=== PATIENT | female | born 1980 | race Caucasian/White ===

== ENCOUNTER 2017-01-19 13:04 | Emergency (ER) | payer MEDICAID ==
[2017-01-19 13:18] VITALS: BP 164/94
--- NOTE | 2017-01-19 13:44 | EDM.PDOC ---
ED HPI Behavioral Health - General Chief Complaint: Behavioral/Psych Stated Complaint: ANXIOUS Time Seen by Provider: 01/19/17 13:31 Source: Reports: Patient Exam Limitations: Reports: No limitations - History of Present Illness INITIAL COMMENTS - FREE TEXT/NARRATIVE: Pt reports hx of anxiety and recent stress of job loss, [place] another [place] to [place] and roommate difficulties as purpose for current anxiety increase. Changed approx 2 weeks ago from Wellbutrin to Lexapro. She is not sure if the medication isn't working or if all of the other factors area also causing her symptoms. Reports she will feel panicked, have nausea and get an upset stomach. Sometimes diarrhea, which she has now, and has had for the past week. Had palpitations last night. Now resolved. Pt reports she is also out of phenergan which she uses when her stomach bothers her. Requesting a small amt of this until she is able to get her Medicaid switched and she can establish in Clinic. Onset of Symptoms: Reports: sudden Duration of Symptoms: Reports: Week(s): Severity: moderate Context, Behavioral Health: Reports: living situation, school/work, family dynamics Associated Symptoms: Reports: anxiety, depression. Denies: hallucinations, auditory, hallucinations, visual, paranoia, suicidal thought - SAD Persons Scale (SPS) SPS Sex: Female SPS Age: Between 18-65 Years of Age SPS Depression: Yes SPS Previous Suicide Attempts: No SPS Alcohol Abuse/Drug Abuse: No SPS Rational Thinking Loss: No SPS Social Support Deficit: Yes SPS Organized Suicide Plan: No SPS No Spouse/Significant Other: No SPS Sickness: No SPS Sad Person Scale Score: 2 - Related Data Allergies Allergy/AdvReac Type Severity Reaction Status Date / Time acetaminophen [From Percocet] Allergy Hives Verified 01/19/17 13:19 amlodipine [From Norvasc] Allergy Hives Verified 01/19/17 13:19 oxycodone [From Percocet] Allergy Hives Verified 01/19/17 13:19 sulfamethoxazole Allergy Vomiting Verified 01/19/17 13:19 [From Bactrim] trimethoprim [From Bactrim] Allergy Vomiting Verified 01/19/17 13:19 Home Medications: Home Meds Escitalopram Oxalate [Lexapro] 20 mg PO DAILY 01/19/17 [History] Esomeprazole [NexIUM] 40 mg PO ACBREAKFAST 01/19/17 [History] Lisinopril [Prinivil] 20 mg PO DAILY 01/19/17 [History] Promethazine [Phenergan] 25 mg PO ASDIRECTED PRN 01/19/17 [History] denies Pain Score (Numeric/FACES): 0 Past Medical History HEENT History: Reports: Impaired vision Cardiovascular History: Reports: Hypertension Gastrointestinal History: Reports: GERD, PUD Genitourinary 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 calculus 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: Psychiatric History: Reports: Anxiety, Depression - Past Surgical History HEENT Surgical History: Reports: Eye surgery Female Surgical History: Reports: Lithotripsy/ESWL, Other (see below) Other Female Surgeries/Procedures: ureter surgery Social & Family History - Tobacco Use Smoking Status *Q: Never Smoker Used Tobacco, but Quit: Yes Month Tobacco Last Used: july 2016 Second Hand Smoke Exposure: No - Caffeine Use Caffeine Use: Reports: Soda, Tea - Recreational Drug Use Recreational Drug Use: No ED ROS GENERAL - Review of Systems Review Of Systems: ROS reveals no pertinent complaints other than HPI. ED EXAM, BEHAVIORAL HEALTH - Physical Exam Exam: See Below Exam Limited By: No limitations General Appearance: alert, WD/WN, no apparent distress Eye Exam: bilateral eye: PERRL Ears: normal external exam, hearing grossly normal Nose: normal inspection Throat/Mouth: Normal inspection, Normal lips, Normal oropharynx, Normal voice, No airway compromise Head: atraumatic Neck: normal inspection, supple Respiratory/Chest: no respiratory distress, lungs clear Cardiovascular: regular rate, rhythm Neurological: alert, normal mood/affect, CN II-XII intact, normal cognition, normal gait Psychiatric: alert, normal affect, normal cognition, normal mood, oriented. No : poor eye contact, uncooperative Skin Exam: Warm, Dry, Intact COURSE, BEHAVIORAL HEALTH COMP - Course Vital Signs: Last Vital Signs Temp 36.2 C 01/19/17 13:17 Pulse 101 H 01/19/17 13:17 Resp 15 01/19/17 13:17 BP 164/94 H 01/19/17 13:17 Pulse Ox 94 L 01/19/17 13:17 Departure - Departure Time of Disposition: 13:45 Disposition: Home, Self-Care 01 Condition: good Clinical Impression: Anxiety, Stomach irritation Instructions: Panic Attacks, [id number] Referrals: PCP,None [Primary Care Provider] - Forms: ED Department Discharge Additional Instructions: 1. You will need to establish in Clinic for further medication refills. Phenergan 25mg tabs #16 no refills 2. Hydroxyzine was provided for you anxiety for home use. 50mg tabs #16 no refills 3. Continue other medications as discussed. - Problem List & Annotations (1) Anxiety SNOMED Code(s): 86652319 Code(s): F41.9 - ANXIETY DISORDER, UNSPECIFIED Status: Acute (2) Stomach irritation SNOMED Code(s): 5471934 Code(s): K31.89 - OTHER DISEASES OF STOMACH AND DUODENUM Status: Chronic - Problem List Review Problem List Initiated/Reviewed/Updated: Yes
== END 2017-01-19 13:56 | disposition home or self-care (01) ==
LOC: JP.ED 13:04
DX: F41.9 Anxiety disorder, unspecified (principal); K31.89 Other diseases of stomach and duodenum; I10 Essential (primary) hypertension; K21.9 Gastro-esophageal reflux disease without esophagitis; F32.9 Major depressive disorder, single episode, unspecified; Z98.890 Other specified postprocedural states; Z79.899 Other long term (current) drug therapy; Z88.1 Allergy status to other antibiotic agents; Z88.5 Allergy status to narcotic agent; Z88.8 Allergy status to other drugs, medicaments and biological substances
CPT/HCPCS: 99283

== ENCOUNTER 2017-04-14 15:51 | Emergency (ER) | payer MEDICAID ==
--- NOTE | 2017-04-14 17:37 | EDM.PDOC ---
ED HPI GENERAL MEDICAL PROBLEM - General Chief Complaint: Genitourinary Problem Stated Complaint: LEFT SIDE KIDNEY PAIN, FEVER THROWING UP Time Seen by Provider: 04/14/17 17:10 Source of Information: Reports: Patient History Limitations: Reports: No Limitations - History of Present Illness INITIAL COMMENTS - FREE TEXT/NARRATIVE: Patient presents today with complaints of left flank pain, dysuria and pain to vagina, labia for 7 days. She reports worsening of pain and burning with urination today accompanied by nausea. She denies fever, chills, vomiting. . Quality: Reports: Sharp, Throbbing Severity: Moderate Improves with: Reports: None Worsens with: Reports: Other (Urination), Movement left flank and around to front Pain Score (Numeric/FACES): 6 - Related Data Allergies Allergy/AdvReac Type Severity Reaction Status Date / Time acetaminophen [From Percocet] Allergy Hives Verified 04/14/17 16:51 amlodipine [From Norvasc] Allergy Hives Verified 04/14/17 16:51 oxycodone [From Percocet] Allergy Hives Verified 04/14/17 16:51 sulfamethoxazole Allergy Vomiting Verified 04/14/17 16:51 [From Bactrim] trimethoprim [From Bactrim] Allergy Vomiting Verified 04/14/17 16:51 Home Meds: Home Meds Escitalopram Oxalate [Lexapro] 20 mg PO DAILY 01/19/17 [History] Esomeprazole [NexIUM] 40 mg PO ACBREAKFAST 01/19/17 [History] Lisinopril [Prinivil] 20 mg PO DAILY 01/19/17 [History] Promethazine [Phenergan] 25 mg PO ASDIRECTED PRN 01/19/17 [History] hydrOXYzine HCl [hydrOXYzine] 50 mg PO QID PRN 04/14/17 [History] Past Medical History HEENT History: Reports: Impaired Vision Cardiovascular History: Reports: Hypertension Gastrointestinal History: Reports: GERD, PUD Genitourinary 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: Psychiatric History: Reports: Anxiety, Depression - Past Surgical History HEENT Surgical History: Reports: Eye Surgery GI Surgical History: Reports: None Female Surgical History: Reports: Lithotripsy/ESWL, Ureteral Stent Social & Family History - Tobacco Use Smoking Status *Q: Never Smoker Used Tobacco, but Quit: Yes Month Tobacco Last Used: july 2016 Second Hand Smoke Exposure: No - Caffeine Use Caffeine Use: Reports: Soda, Tea - Recreational Drug Use Recreational Drug Use: No ED ROS GENERAL - Review of Systems Review Of Systems: See Below Constitutional: Denies: Fever, Chills, Malaise HEENT: Reports: No Symptoms Respiratory: Denies: Shortness of Breath, Wheezing, Cough, Sputum Cardiovascular: Denies: Chest Pain, Dyspnea on Exertion, Edema, Lightheadedness , Palpitations, PND, Syncope Endocrine: Reports: No Symptoms GI/Abdominal: Reports: Abdominal Pain, Nausea. Denies: Black Stool, Bloody Stool, Constipation, Diarrhea, Stool Incontinence, Vomiting : Reports: Dysuria, Flank Pain, Frequency, Irregular Menses, Urgency. Denies : Hematuria, Urinary Retention Musculoskeletal: Reports: No Symptoms Skin: Denies: Bruising, Pruritis, Rash, Erythema, Wound, Urticaria Neurological: Denies: Confusion, Dizziness, Headache, Numbness, Tingling, Weakness Psychiatric: Reports: No Symptoms Hematologic/Lymphatic: Reports: No Symptoms Immunologic: Reports: No Symptoms ED EXAM, RENAL/ - Physical Exam Exam: See Below Text/Narrative:: Marilou is an alert, oriented and pleasant 37 year old female presenting with dysuria, left flank pain and vaginal odor for 7 days. She reports worsening today. Exam Limited By: No Limitations General Appearance: Alert, WD/WN, No Apparent Distress Eye Exam: Bilateral Eye: EOMI, Normal Inspection Ears: Normal External Exam, Normal Canal, Hearing Grossly Normal, Normal TMs Nose: Normal Inspection, Normal Mucosa, No Blood Throat/Mouth: Normal Inspection, Normal Lips, Normal Teeth, Normal Gums, Normal Oropharynx, Normal Voice, No Airway Compromise Head: Atraumatic, Normocephalic Neck: Normal Inspection, Supple, Non-Tender, Full Range of Motion Respiratory/Chest: No Respiratory Distress, Lungs Clear, Normal Breath Sounds, No Accessory Muscle Use, Chest Non-Tender Cardiovascular: Normal Peripheral Pulses, Regular Rate, Rhythm, No Edema, No Murmur, No Rub GI/Abdominal: Normal Bowel Sounds, Soft, Non-Tender, No Organomegaly, No Abnormal Bruit, Other (obese) (Female) Exam: Normal External Exam, Other (strong odor). No: Vaginal Bleeding, Vaginal Lesions, Vaginal Tears Back Exam: Full Range of Motion, CVA Tenderness (L). No: CVA Tenderness (R), Decreased Range of Motion, Muscle Spasm, Paraspinal Tenderness, Vertebral Tenderness Extremities: Normal Inspection, Normal Range of Motion, Non-Tender, No Pedal Edema, Normal Capillary Refill Neurological: Alert, Oriented, CN II-XII Intact, Normal Cognition, Normal Gait, No Motor/Sensory Deficits Psychiatric: Normal Affect, Normal Mood Skin Exam: Warm, Dry, Intact, Normal Color, No Rash Lymphatic: No Adenopathy Course - Vital Signs Last Recorded V/S: Last Vital Signs Temp 36.8 C 04/14/17 16:45 Pulse 80 04/14/17 18:08 Resp 16 04/14/17 18:08 BP 141/79 H 04/14/17 18:08 Pulse Ox 98 04/14/17 18:08 - Orders/Labs/Meds Orders: Active Orders 24 hr Category Date Time Status Kidney Stone Protocol [CT] Stat Exams 04/14/17 18:53 Taken Labs: Laboratory Tests 04/14/17 04/14/17 04/14/17 Range/Units 17:29 17:29 17:29 WBC 8.9 (4.5-11.0) K/uL RBC 4.98 (3.30-5.50) M/uL Hgb 13.8 (12.0-15.0) g/dL Hct 40.3 (36.0-48.0) % MCV 81 (80-98) fL MCH 28 (27-31) pg MCHC 34 (32-36) % Plt Count 150 (150-400) K/uL Neut % (Auto) 66 (36-66) % Lymph % (Auto) 20 L (24-44) % [place] % (Auto) 7 H (2-6) % Eos % (Auto) 7 H (2-4) % Baso % (Auto) 0 (0-1) % Sodium 138 L (140-148) mmol/L Potassium 4.2 (3.6-5.2) mmol/L Chloride 103 (100-108) mmol/L Carbon Dioxide 28 (21-32) mmol/L Anion Gap 11.2 (5.0-14.0) mmol/L BUN 18 (7-18) mg/dL Creatinine 1.1 H (0.6-1.0) mg/dL Est Cr Clr Drug Dosing 61.79 mL/min Estimated GFR (MDRD) 55 L (>60) Glucose 85 (74-106) mg/dL Calcium 9.0 (8.5-10.1) mg/dL Urine Color Yellow Urine Appearance Slightly cloudy Urine pH 5.0 (4.5-8.0) Ur Specific [place] 1.025 (1.008-1.030) Urine Protein Negative (NEGATIVE) mg/dL Urine Glucose (UA) Normal (NEGATIVE) mg/dL Urine Ketones Negative (NEGATIVE) mg/dL Urine Occult Blood Negative (NEGATIVE) Urine Nitrite Negative (NEGATIVE) Urine Bilirubin Negative (NEGATIVE) Urine Urobilinogen Normal (NORMAL) mg/dL Ur Leukocyte Esterase Negative (NEGATIVE) Urine RBC Not seen (0-5) Urine WBC 0-5 (0-5) Ur Epithelial Cells Moderate Amorphous Sediment Rare Urine Bacteria Not seen Urine Mucus Not seen Urine HCG, Qual 04/14/17 Range/Units 17:37 WBC (4.5-11.0) K/uL RBC (3.30-5.50) M/uL Hgb (12.0-15.0) g/dL Hct (36.0-48.0) % MCV (80-98) fL MCH (27-31) pg MCHC (32-36) % Plt Count (150-400) K/uL Neut % (Auto) (36-66) % Lymph % (Auto) (24-44) % [place] % (Auto) (2-6) % Eos % (Auto) (2-4) % Baso % (Auto) (0-1) % Sodium (140-148) mmol/L Potassium (3.6-5.2) mmol/L Chloride (100-108) mmol/L Carbon Dioxide (21-32) mmol/L Anion Gap (5.0-14.0) mmol/L BUN (7-18) mg/dL Creatinine (0.6-1.0) mg/dL Est Cr Clr Drug Dosing mL/min Estimated GFR (MDRD) (>60) Glucose (74-106) mg/dL Calcium (8.5-10.1) mg/dL Urine Color Urine Appearance Urine pH (4.5-8.0) Ur Specific [place] (1.008-1.030) Urine Protein (NEGATIVE) mg/dL Urine Glucose (UA) (NEGATIVE) mg/dL Urine Ketones (NEGATIVE) mg/dL Urine Occult Blood (NEGATIVE) Urine Nitrite (NEGATIVE) Urine Bilirubin (NEGATIVE) Urine Urobilinogen (NORMAL) mg/dL Ur Leukocyte Esterase (NEGATIVE) Urine RBC (0-5) Urine WBC (0-5) Ur Epithelial Cells Amorphous Sediment Urine Bacteria Urine Mucus Urine HCG, Qual Negative Meds: Medications Discontinued Medications Generic Name Dose Route Start Last Admin Trade Name Freq PRN Reason Stop Dose Admin Ketorolac Tromethamine 60 mg 04/14/17 18:53 04/14/17 19:07 Toradol IM 04/14/17 18:54 60 mg ONETIME ONE Administration Ondansetron HCl 4 mg 04/14/17 18:54 04/14/17 20:32 Zofran Odt PO 04/14/17 18:55 Not Given ONETIME ONE - Radiology Interpretation Free Text/Narrative:: CT scan results: Mild left hydronephrosis with prominent left renal pelvis narrowing down to the left UPJ. 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 - Re-Assessments/Exams Free Text/Narrative Re-Assessment/Exam: 04/14/17 1845 Lab work reviewed with patient. Pain and nausea continue. Zofran and toradol will be administered. CT scan with renal stone protocol to be completed. Patient in agreement with plan. Free Text/Narrative Re-Assessment/Exam: 04/14/17 19:55 Patient sleeping without difficulty in room. Waiting for CT report. 04/14/17 20:35 CT report discussed with patient, pain management discussed with patient as well as importance of follow up with primary provider and urology. Patient verbalized understanding. She will practice good vaginal hygiene for irritation, use of lubricant for intercourse. Departure - Departure Time of Disposition: 20:10 Disposition: Home, Self-Care 01 Clinical Impression: Hydronephrosis - Discharge Information Instructions: Hydronephrosis Referrals: PCP,None [Primary Care Provider] - Forms: ED Department Discharge Additional Instructions: CT scan negative for acute finding or kidney stone. 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 This needs to be followed by your primary care provider and you will need a referral to a urologist. In symptomatic patients, sometimes surgical intervention to relieve the obstruction is done. You can use toradol 10mg tablet, one tablet by mouth every 6 hours for pain #10. You can use acetaminophen and ibuprofen (after use of toradol) for pain. Phenergan as needed for nausea. Report to clinic or ER with worsening, issues or concerns. - My Orders Last 24 Hours: My Active Orders 04/14/17 18:53 Kidney Stone Protocol [CT] Stat - Assessment/Plan Last 24 Hours: My Active Orders 04/14/17 18:53 Kidney Stone Protocol [CT] Stat Assessment:: CT scan negative for acute finding or kidney stone. 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 This needs to be followed primary care provider as well as a referral to a urologist. In symptomatic patients, sometimes surgical intervention to relieve the obstruction is done. Plan: CT scan negative for acute finding or kidney stone. 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 This needs to be followed by primary care provider and a urologist. In symptomatic patients, sometimes surgical intervention to relieve the obstruction is done. Patient advised to see primary provider this week to obtain urology referral. She can use toradol 10mg tablet, one tablet by mouth every 6 hours for pain #10. You can use acetaminophen and ibuprofen (after use of toradol) for pain. Phenergan as directed for nausea Report to clinic or ER with worsening, issues or concerns.
[2017-04-14 18:09] VITALS: BP 141/79
[2017-04-14] MEDS ORDERED: Ketorolac 60 MG/2 ML SDV IM ONE (18:53)
[2017-04-14] MEDS ORDERED: Ondansetron 4 MG Tab.DIS PO ONE (18:54)
== END 2017-04-14 20:39 | disposition home or self-care (01) ==
LOC: JP.ED 15:51
DX: N13.30 Unspecified hydronephrosis (principal); I10 Essential (primary) hypertension; K21.9 Gastro-esophageal reflux disease without esophagitis; F41.9 Anxiety disorder, unspecified; F32.9 Major depressive disorder, single episode, unspecified; Z88.1 Allergy status to other antibiotic agents; Z88.8 Allergy status to other drugs, medicaments and biological substances; Z79.899 Other long term (current) drug therapy; Z87.442 Personal history of urinary calculi; Z98.890 Other specified postprocedural states
CPT/HCPCS: 36415; 74176; 80048; 81001; 81025; 85025; 87210; 96372; 99284; J1885

== ENCOUNTER 2017-05-07 18:25 | Emergency (ER) | payer MEDICAID ==
[2017-05-07] MEDS ORDERED: Sodium Chloride 0.9% 1,000 ML IV SCH (19:15)
[2017-05-07] MEDS ORDERED: Ketorolac 30 MG/ML SDV IVPUSH ONE (20:47)
[2017-05-07 20:58] VITALS: BP 145/83
--- NOTE | 2017-05-07 21:48 | EDM.PDOC ---
ED HPI GENERAL MEDICAL PROBLEM - General Chief Complaint: Flank Pain Stated Complaint: SEVERE LEFT SIDE BACK PAIN Time Seen by Provider: 05/07/17 18:29 Source of Information: Reports: Patient History Limitations: Reports: No Limitations - History of Present Illness INITIAL COMMENTS - FREE TEXT/NARRATIVE: History of present illness: [Patient is here presenting with left flank pain she had a CT last Friday at [facility] in [place] and has not heard the results of that. 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 Just wondering what to do next. Denies any dysuria denies any nausea vomiting constipation diarrhea denies any fevers or chills.] Review of systems: As per history of present illness and below otherwise all systems reviewed and negative. Past medical history: As per history of present illness and as reviewed below otherwise noncontributory. Surgical history: As per history of present illness and as reviewed below otherwise noncontributory. Social history: No reported history of drug or alcohol abuse. Family history: As per history of present illness and as reviewed below otherwise noncontributory. Physical exam: HEENT: Atraumatic, normocephalic, pupils reactive, negative for conjunctival pallor or scleral icterus, mucous membranes moist, throat clear, neck supple, nontender, trachea midline. Lungs: Clear to auscultation, breath sounds equal bilaterally, chest nontender. Heart: S1S2, regular, negative for clicks, rubs, or JVD. Abdomen: She has mild tenderness to palpation of the left flank area and mild CVA tenderness. No masses are appreciated. Pelvis: Stable nontender. Genitourinary: Deferred. Rectal: Deferred. Extremities: Atraumatic, negative for cords or calf pain. Neurovascular unremarkable. Neuro: Awake, alert, oriented. Exam nonfocal. Diagnostics: [CBC complete metabolic panel UA urine test were all done nothing of any note was discovered.] Therapeutics: [She received IV fluids while here and IV Toradol and her pain improved with this.] Impression: [Left flank pain with CT evidence of partial duplication of the left renal collecting system see CT report for details.] Plan: [Were going to give her a copy of her CT report and she will try to get a hold of her urologist tomorrow to know what the next step will be. She may need to have some sort of surgery or stent placed. At this time were not seeing any evidence of infection from an obstruction and so I'm not placing her on any antibiotics.] Definitive disposition and diagnosis as appropriate pending reevaluation and review of above. Left Flank Pain Score (Numeric/FACES): 8 - Related Data Allergies Allergy/AdvReac Type Severity Reaction Status Date / Time amlodipine [From Norvasc] Allergy Hives Verified 05/07/17 19:02 oxycodone [From Percocet] Allergy Hives Verified 05/07/17 19:02 sulfamethoxazole Allergy Vomiting Verified 05/07/17 19:02 [From Bactrim] trimethoprim [From Bactrim] Allergy Vomiting Verified 05/07/17 19:02 Home Meds: Home Meds Escitalopram Oxalate [Lexapro] 20 mg PO DAILY 01/19/17 [History] Esomeprazole [NexIUM] 40 mg PO ACBREAKFAST 01/19/17 [History] Lisinopril [Prinivil] 20 mg PO DAILY 01/19/17 [History] Promethazine [Phenergan] 25 mg PO ASDIRECTED PRN 01/19/17 [History] hydrOXYzine HCl [hydrOXYzine] 50 mg PO QID PRN 04/14/17 [History] Past Medical History HEENT History: Reports: Impaired Vision Cardiovascular History: Reports: Hypertension Gastrointestinal History: Reports: GERD, PUD Genitourinary 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 Calculus [employer] History: Reports: Psychiatric History: Reports: Anxiety, Depression - Past Surgical History HEENT Surgical History: Reports: Eye Surgery GI Surgical History: Reports: None Female Surgical History: Reports: Lithotripsy/ESWL, Ureteral Stent Social & Family History - Tobacco Use Smoking Status *Q: Former Smoker Used Tobacco, but Quit: Yes Month Tobacco Last Used: 0 Second Hand Smoke Exposure: No - Caffeine Use Caffeine Use: Reports: Soda, Tea - Recreational Drug Use Recreational Drug Use: No ED ROS GENERAL - Review of Systems Review Of Systems: ROS reveals no pertinent complaints other than HPI. ED EXAM, GENERAL - Physical Exam Exam: See Below Course - Vital Signs Last Recorded V/S: Last Vital Signs Temp 36.2 C 05/07/17 19:01 Pulse 85 05/07/17 20:56 Resp 16 05/07/17 20:56 BP 145/83 H 05/07/17 20:56 Pulse Ox 98 05/07/17 20:56 - Orders/Labs/Meds Orders: Active Orders 24 hr Category Date Time Status Sodium Chloride 0.9% [Normal Saline] 1,000 ml Med 05/07/17 19:15 Active IV ASDIRECTED Medication Orders Sodium Chloride (Normal Saline) 1,000 mls @ 500 mls/hr IV ASDIRECTED SAE Last Admin: 05/07/17 20:18 Dose: 500 mls/hr Labs: Laboratory Tests 05/07/17 05/07/17 05/07/17 Range/Units 19:28 19:28 19:38 WBC 8.2 (4.5-11.0) K/uL RBC 5.04 (3.30-5.50) M/uL Hgb 13.8 (12.0-15.0) g/dL Hct 41.0 (36.0-48.0) % MCV 81 (80-98) fL MCH 27 (27-31) pg MCHC 34 (32-36) % Plt Count 301 (150-400) K/uL Neut % (Auto) 62 (36-66) % Lymph % (Auto) 24 (24-44) % [place] % (Auto) 10 H (2-6) % Eos % (Auto) 4 (2-4) % Baso % (Auto) 1 (0-1) % Sodium (140-148) mmol/L Potassium (3.6-5.2) mmol/L Chloride (100-108) mmol/L Carbon Dioxide (21-32) mmol/L Anion Gap (5.0-14.0) mmol/L BUN (7-18) mg/dL Creatinine (0.6-1.0) mg/dL Est Cr Clr Drug Dosing mL/min Estimated GFR (MDRD) (>60) Glucose (74-106) mg/dL Lactic Acid (0.4-2.0) mmol/L Calcium (8.5-10.1) mg/dL Total Bilirubin (0.2-1.0) mg/dL AST (15-37) U/L ALT (12-78) U/L Alkaline Phosphatase (46-116) U/L C-Reactive Protein (0.0-0.3) mg/dL Total Protein (6.4-8.2) g/dL Albumin (3.4-5.0) g/dL Globulin (2.3-3.5) g/dL Albumin/Globulin Ratio (1.2-2.2) Urine Color Yellow Urine Appearance Slightly cloudy Urine pH 6.0 (4.5-8.0) Ur Specific Wister 1.030 (1.008-1.030) Urine Protein Negative (NEGATIVE) mg/dL Urine Glucose (UA) Normal (NEGATIVE) mg/dL Urine Ketones Negative (NEGATIVE) mg/dL Urine Occult Blood Negative (NEGATIVE) Urine Nitrite Negative (NEGATIVE) Urine Bilirubin Negative (NEGATIVE) Urine Urobilinogen Normal (NORMAL) mg/dL Ur Leukocyte Esterase Negative (NEGATIVE) Urine RBC 0-5 (0-5) Urine WBC Not seen (0-5) Ur Epithelial Cells Rare Amorphous Sediment Few Urine Bacteria Few Urine Mucus Not seen Urine Other Urine HCG, Qual Negative 05/07/17 05/07/17 Range/Units 19:38 19:38 WBC (4.5-11.0) K/uL RBC (3.30-5.50) M/uL Hgb (12.0-15.0) g/dL Hct (36.0-48.0) % MCV (80-98) fL MCH (27-31) pg MCHC (32-36) % Plt Count (150-400) K/uL Neut % (Auto) (36-66) % Lymph % (Auto) (24-44) % [place] % (Auto) (2-6) % Eos % (Auto) (2-4) % Baso % (Auto) (0-1) % Sodium 137 L (140-148) mmol/L Potassium 4.0 (3.6-5.2) mmol/L Chloride 104 (100-108) mmol/L Carbon Dioxide 30 (21-32) mmol/L Anion Gap 7.0 (5.0-14.0) mmol/L BUN 16 (7-18) mg/dL Creatinine 1.0 (0.6-1.0) mg/dL Est Cr Clr Drug Dosing 67.96 mL/min Estimated GFR (MDRD) > 60 (>60) Glucose 100 (74-106) mg/dL Lactic Acid 1.3 (0.4-2.0) mmol/L Calcium 8.7 (8.5-10.1) mg/dL Total Bilirubin 0.2 D (0.2-1.0) mg/dL AST 16 (15-37) U/L ALT 28 (12-78) U/L Alkaline Phosphatase 90 (46-116) U/L C-Reactive Protein 1.97 H (0.0-0.3) mg/dL Total Protein 7.9 (6.4-8.2) g/dL Albumin 3.4 (3.4-5.0) g/dL Globulin 4.5 H (2.3-3.5) g/dL Albumin/Globulin Ratio 0.8 L (1.2-2.2) Urine Color Urine Appearance Urine pH (4.5-8.0) Ur Specific Wister (1.008-1.030) Urine Protein (NEGATIVE) mg/dL Urine Glucose (UA) (NEGATIVE) mg/dL Urine Ketones (NEGATIVE) mg/dL Urine Occult Blood (NEGATIVE) Urine Nitrite (NEGATIVE) Urine Bilirubin (NEGATIVE) Urine Urobilinogen (NORMAL) mg/dL Ur Leukocyte Esterase (NEGATIVE) Urine RBC (0-5) Urine WBC (0-5) Ur Epithelial Cells Amorphous Sediment Urine Bacteria Urine Mucus Urine Other Urine HCG, Qual Meds: Medications Generic Name Dose Route Start Last Admin Trade Name Freq PRN Reason Stop Dose Admin Sodium Chloride 1,000 mls @ 500 mls/hr 05/07/17 19:15 05/07/17 20:18 Normal Saline IV 500 mls/hr ASDIRECTED SAE Administration Discontinued Medications Generic Name Dose Route Start Last Admin Trade Name Freq PRN Reason Stop Dose Admin Ketorolac Tromethamine 30 mg 05/07/17 20:47 05/07/17 20:54 Toradol IVPUSH 05/07/17 20:48 30 mg ONETIME ONE Administration Departure - Departure Time of Disposition: 21:47 Disposition: Home, Self-Care 01 Condition: Good Clinical Impression: Left flank pain - Discharge Information Forms: ED Department Discharge Additional Instructions: Were providing you a copy of your CAT scan and please try to get a hold of the clinic that you're working with them the urologist to know what the next step is in the management of your pain and the problem with your collecting system for your kidneys. - My Orders Last 24 Hours: My Active Orders 05/07/17 19:15 Sodium Chloride 0.9% [Normal Saline] 1,000 ml IV ASDIRECTED - Assessment/Plan Last 24 Hours: My Active Orders 05/07/17 19:15 Sodium Chloride 0.9% [Normal Saline] 1,000 ml IV ASDIRECTED
== END 2017-05-07 21:55 | disposition home or self-care (01) ==
LOC: JP.ED 18:25
DX: R10.9 Unspecified abdominal pain (principal); I10 Essential (primary) hypertension; K21.9 Gastro-esophageal reflux disease without esophagitis; F41.9 Anxiety disorder, unspecified; F32.9 Major depressive disorder, single episode, unspecified; Z87.442 Personal history of urinary calculi; Z98.890 Other specified postprocedural states; Z87.891 Personal history of nicotine dependence; Z79.899 Other long term (current) drug therapy; Z88.1 Allergy status to other antibiotic agents; Z88.5 Allergy status to narcotic agent; Z88.8 Allergy status to other drugs, medicaments and biological substances
CPT/HCPCS: 36415; 80053; 81001; 81025; 83605; 85025; 86140; 96361; 96374; 99284; J1885; J7040